=== PATIENT | male | born 1990 | race Hispanic/Latino ===

== ENCOUNTER 2019-12-12 09:50 | Emergency (ER) | payer SELFPAY ==
[2019-12-12 10:06] LABS: Absolute Lymphocytes (CBC) 1.3 K/uL (0.7-4.9); Basophils % 0.4 % (0-1.3); Hematocrit 42.3 % (39.6-49.0); Lymphocytes % 18.5 % (15.3-44.8); MPV 7.5 fL (7.6-11.3); RBC Red Blood Cell Count 5.05 M/uL (4.33-5.43)
[2019-12-12 10:26] LABS: ALT/SGPT 74 U/L (12-78); AST/SGOT 43 U/L (15-37); Albumin 3.9 g/dL (3.4-5.0); Alkaline Phosphatase 75 U/L (45-117); BUN Blood Urea Nitrogen 9 mg/dL (7-18); Bicarbonate 27 mmol/L (21-32); Bilirubin Direct 0.1 mg/dL (0-0.2); Bilirubin Total 0.5 mg/dL (0.2-1.0); Glucose Level 164 mg/dL (74-106); NT PRO-BNP 155 pg/mL (<125); Potassium 3.5 mmol/L (3.5-5.1); Protein, Total 8.3 g/dL (6.4-8.2); Sodium Level 140 mmol/L (136-145); Troponin (Emerg Dept Use Only) < 0.02 ng/mL (0.0-0.045)
--- NOTE | 2019-12-12 11:08 | RAD REPORT ---
EXAM DESCRIPTION: CT - Angio Aorta For Dissection - 12/12/2019 10:44 am CLINICAL HISTORY: . Chest and abd pain COMPARISON: 2016 TECHNIQUE: Computed tomography angiography of the chest, abdomen pelvis were obtained. 100 cc Isovue 370 was administered intravenously. Coronal and sagittal reconstruction were performed. MIP 3D reconstruction was performed All CT scans are performed using dose optimization technique as appropriate and may include automated exposure control or mA/KV adjustment according to patient size. FINDINGS: An aortic dissection is not seen. An aortic aneurysm is not displayed. The celiac, SMA and RAY are patent . A lung consolidation is not present. A pericardial effusion is not seen. A pleural effusion is not n oted. Multiple gallstones with borderline gallbladder distention. The gallbladder wall does not appear thic kened. Fatty liver Spleen, pancreas adrenals kidneys demonstrate no significant abnormality. The appendix is normal. There no evidence diverticulitis. No ascites is noted. IMPRESSION: Negative for an aortic dissection. Cholelithiasis with border line gallbladder distention
--- NOTE | 2019-12-12 11:23 | RAD REPORT ---
EXAM DESCRIPTION: Bharathi Single View12/12/2019 11:13 am CLINICAL HISTORY: Chest pain COMPARISON: 2016 FINDINGS: The lungs appear clear of acute infiltrate. The heart is normal size IMPRESSION: No acute abnormalities displayed
--- NOTE | 2019-12-12 11:26 | ER ---
Nurse's Notes [facility] Name: Adan Pfeiffer Age: 28 yrs Sex: Male : 1990 Arrival Date: 12/12/2019 Time: 09:56 Bed 2 Private MD: Diagnosis: Chest pain, unspecified;Hypertension Presentation: 12/11 09:50 Chief complaint: Patient states: chest pain that began while working outside, pt noted aa5 to be sweaty upon arrival to ER. EMS reports initial BP was 200/100 and decreased to 160/80 after Nitro x 2 and Metoprolol 5mg IV, pt also given ASA 324mg PO by EMS. Pt reports pain has decreased and reports feeling better upon arrival to ER. Pt reports he was just diagnosed with hypertension on Thursday and has not started antihypertensive yet. 09:50 Coronavirus screen: Client denies travel out of the [place] in the last 14 days. At this aa5 time, the client does not indicate any symptoms associated with coronavirus-19. Ebola Screen: Patient negative for fever greater than or equal to 101.5 degrees Fahrenheit, and additional compatible Ebola Virus Disease symptoms. Initial Sepsis Screen: Does the patient meet any 2 criteria? No. Patient's initial sepsis screen is negative. Does the patient have a suspected source of infection? No. Patient's initial sepsis screen is negative. Risk Assessment: Do you want to hurt yourself or someone else? Patient reports no desire to harm self or others. Onset of symptoms was December 12, 2019. 09:50 Method Of Arrival: EMS: [facility] aa5 09:50 Acuity: ANABEL 3 aa5 Historical: - Allergies: 10:05 No Known Allergies; ca1 - Home Meds: 10:05 None [Active]; ca1 - PMHx: 10:05 None; ca1 - PSHx: 10:05 None; ca1 - Immunization history:: Adult Immunizations up to date. - Family history:: not pertinent. - Social history:: Smoking status: Patient denies any tobacco usage or history of. - Hospitalizations: : No recent hospitalization is reported. Screenin:05 Abuse screen: Denies threats or abuse. Denies injuries from another. Nutritional ca1 screening: No deficits noted. Tuberculosis screening: No symptoms or risk factors identified. Fall Risk IV access (20 points). Assessment: 10:02 General: Appears in no apparent distress. comfortable, Behavior is calm, cooperative, ca1 appropriate for age. Pain: Complains of pain in mid-sternal area Pain does not radiate. Pain currently is 8 out of 10 on a pain scale. Quality of pain is described as heavy, pressure, Pain began 2 hours ago. Is intermittent. Neuro: Level of Consciousness is awake, alert, obeys commands, Oriented to person, place, time, situation. Neuro: Reports dizziness, with chest pain. Cardiovascular: Heart tones S1 S2 present Capillary refill < 3 seconds Patient's skin is warm and dry. Rhythm is sinus rhythm. Respiratory: Airway is patent Respiratory effort is even, unlabored, Respiratory pattern is regular, symmetrical, Breath sounds are clear bilaterally. GI: Abdomen is round non-distended, Bowel sounds present X 4 quads. Abd is soft and non tender X 4 quads. : No deficits noted. No signs and/or symptoms were reported regarding the genitourinary system. EENT: No deficits noted. No signs and/or symptoms were reported regarding the EENT system. Derm: Skin is intact, is healthy with good turgor, Skin is pink, warm \T\ dry. Musculoskeletal: Circulation, motion, and sensation intact. Capillary refill < 3 seconds. 10:09 Reassessment: [phone], Noemí, . ca1 10:53 Reassessment: Patient appears in no apparent distress at this time. Patient and/or ca1 family updated on plan of care and expected duration. Pain level reassessed. Patient is alert, oriented x 3, equal unlabored respirations, skin warm/dry/pink. 11:21 Reassessment: Dr. Kim at bedside. ca1 11:30 Reassessment: Patient appears in no apparent distress at this time. Patient is alert, ca1 oriented x 3, equal unlabored respirations, skin warm/dry/pink. Patient states feeling better. Patient states symptoms have improved. Vital Signs: 09:50 BP 152 / 96; Pulse 86; Resp 16 S; Temp 99.3(O); Pulse Ox 98% on R/A; Weight 122.47 kg aa5 (R); Height 6 ft. 1 in. (185.42 cm) (R); Pain 8/10; 10:53 BP 133 / 97; Pulse 77; Resp 20; Pulse Ox 98% on R/A; ca1 11:30 BP 137 / 87; Pulse 72; Resp 19 S; Pulse Ox 99% on R/A; Pain 4/10; ca1 09:50 Body Mass Index 35.62 (122.47 kg, 185.42 cm) 5 ED Course: 09:50 Patient arrived in ED. aa5 09:50 Arm band placed on Patient placed in an exam room, on a stretcher. aa5 09:56 Kurt Kim MD is Attending Physician. rn 10:00 Triage completed. aa5 10:02 Lynnette Berrios, RN is Primary Nurse. ca1 10:05 Patient has correct armband on for positive identification. Placed in gown. Bed in low ca1 position. Call light in reach. Side rails up X2. child monitor on. Pulse ox on. NIBP on. Warm blanket given. 10:05 No provider procedures requiring assistance completed. Maintain EMS IV. Dressing ca1 intact. Good blood return noted. Site clean \T\ dry. Gauge \T\ site: 18G RAC. Patient maintains SpO2 saturation greater than 95% on room air. 10:43 CT Aorta for Dissection In Process Unspecified. EDMS 11:14 XRAY Chest (1 view) In Process Unspecified. EDMS 11:39 IV discontinued, intact, bleeding controlled, No redness/swelling at site. Pressure ca1 dressing applied. Administered Medications: No medications were administered Outcome: 11:25 Discharge ordered by . rn 11:39 Discharged to home ambulatory. ca1 11:39 Condition: stable 11:39 Discharge instructions given to patient, Instructed on discharge instructions, follow up and referral plans. Demonstrated understanding of instructions, follow-up care. 11:40 Patient left the ED. ca1 Signatures: Dispatcher [employer] EDMS Kurt Kim MD MD rn Calderon, Audri, RN RN aa Lynnette Berrios RN RN ca1 Corrections: (The following items were deleted from the chart) 09:57 09:56 Patient arrived in ED. gilberto birch
--- NOTE | 2019-12-12 11:26 | EDPHYS ---
Physician Documentation [facility] Name: Adan Pfeiffer Age: 28 yrs Sex: Male : 1990 Arrival Date: 12/12/2019 Time: 09:56 Bed 2 Private MD: ED Physician Kurt Kim HPI: 12/11 09:57 This 28 yrs old Male presents to ER via Unassigned with complaints of Chest rn Pain. 09:57 The patient or guardian reports chest pain that is located primarily in the substernal rn area. The pain does not radiate. Associated signs and symptoms: Pertinent positives: None. Pertinent negatives: abdominal pain, cough, diaphoresis, dizziness, headache, lightheadedness, palpitations, shortness of breath, syncope, vomiting. The chest pain is described as a heaviness, squeezing. Duration: The patient or guardian reports a single episode. Modifying factors: The symptoms are alleviated by nothing. the symptoms are aggravated by nothing. Severity of pain: At its worst the pain was moderate in the emergency department the pain has improved. The patient has not experienced similar symptoms in the past. Reports just found out recently has high blood pressure, prescribed medication, did not fill, now having chest pain, substernal, non-radiating, while working. No trauma/fever/cough/sob. No abd pain. Feels better now, improved after 5mg metoprolol IV by EMS.. Historical: - Allergies: 10:05 No Known Allergies; ca1 - Home Meds: 10:05 None [Active]; ca1 - PMHx: 10:05 None; ca1 - PSHx: 10:05 None; ca1 - Immunization history:: Adult Immunizations up to date. - Family history:: not pertinent. - Social history:: Smoking status: Patient denies any tobacco usage or history of. - Hospitalizations: : No recent hospitalization is reported. ROS: 09:57 Constitutional: Negative for fever, chills, and weight loss, Eyes: Negative for injury, rn pain, redness, and discharge, Neck: Negative for injury, pain, and swelling, Cardiovascular: Negative for palpitations, and edema, Respiratory: Negative for shortness of breath, cough, wheezing, and pleuritic chest pain, Abdomen/GI: Negative for abdominal pain, nausea, vomiting, diarrhea, and constipation, Back: Negative for injury and pain, MS/Extremity: Negative for injury and deformity, Skin: Negative for injury, rash, and discoloration, Neuro: Negative for headache, weakness, numbness, tingling, and seizure. Exam: 09:57 Constitutional: This is a well developed, well nourished patient who is awake, alert, rn and in no acute distress. Head/Face: Normocephalic, atraumatic. Eyes: Pupils equal round and reactive to light, extra-ocular motions intact. Lids and lashes normal. Conjunctiva and sclera are non-icteric and not injected. Cornea within normal limits. Periorbital areas with no swelling, redness, or edema. Cardiovascular: Regular rate and rhythm. No pulse deficits. Respiratory: No increased work of breathing, no retractions or nasal flaring. Abdomen/GI: Soft, non-tender MS/ Extremity: Pulses equal, no cyanosis. Neurovascular intact. Full, normal range of motion. Equal circumference. Neuro: Awake and alert, GCS 15 Vital Signs: 09:50 BP 152 / 96; Pulse 86; Resp 16 S; Temp 99.3(O); Pulse Ox 98% on R/A; Weight 122.47 kg aa5 (R); Height 6 ft. 1 in. (185.42 cm) (R); Pain 8/10; 10:53 BP 133 / 97; Pulse 77; Resp 20; Pulse Ox 98% on R/A; ca1 11:30 BP 137 / 87; Pulse 72; Resp 19 S; Pulse Ox 99% on R/A; Pain 4/10; ca1 09:50 Body Mass Index 35.62 (122.47 kg, 185.42 cm) aa5 MDM: 09:56 Patient medically screened. rn 11:23 Differential diagnosis: acute myocardial infarction, acute pericarditis, anxiety, rn cholecystitis, Cholelithiasis costochondritis, esophagitis, gastritis, gastroesophageal reflux disease (GERD), pleurisy, pneumothorax, thoracic aortic disection. Data reviewed: vital signs, nurses notes, lab test result(s), EKG, radiologic studies, CT scan, plain films, and as a result, I will discharge patient. Counseling: I had a detailed discussion with the patient and/or guardian regarding: the historical points, exam findings, and any diagnostic results supporting the discharge/admit diagnosis, lab results, radiology results, the need for outpatient follow up, to return to the emergency department if symptoms worsen or persist or if there are any questions or concerns that arise at home. Response to treatment: the patient's symptoms have resolved after treatment, the patient's condition has returned to base line, the patient is now symptom free, and as a result, I will discharge patient. Special discussion: Based on the patient's history, exam, and Dx evaluation, there is no indication for emergent intervention or inpatient Tx. It is understood by the patient/guardian that if the Sx's persist or worsen they need to return immediately for re-evaluation. I discussed with the patient/guardian in detail that at this point there is no indication for admission to the hospital. It is understood, however, that if the symptoms persist or worsen the patient needs to return immediately for re-evaluation. ED course: Neg w/u here, including aortic scan, + known gallstones without thickening or phil-cholecystic fluid, no abd tenderness. Will dc home with instruction to start taking his BP meds as prescribed. Return precautions given and understood. . 11:26 Counseling: I had a detailed discussion with the patient and/or guardian regarding: the rn presence of at least one elevated blood pressure reading (>120/80) during this emergency department visit. Special discussion: I have referred the patient to see his PCP for further evaluation of high blood pressure. 12/11 09:57 Order name: Basic Metabolic Panel; Complete Time: 10:12/11 09:57 Order name: CBC with Diff; Complete Time: :12/11 09:57 Order name: LFT's; Complete Time: :12/11 09:57 Order name: NT PRO-BNP; Complete Time: 10:12/11 09:57 Order name: Troponin (emerg Dept Use Only); Complete Time: 10:12/11 09:57 Order name: XRAY Chest (1 view); Complete Time: 11:12/11 09:57 Order name: EKG; Complete Time: 09:12/11 09:57 Order name: Cardiac monitoring; Complete Time: 10:12/11 09:57 Order name: EKG - Nurse/Tech; Complete Time: 10:12/11 09:57 Order name: IV Saline Lock; Complete Time: 10:06 rn 12/11 09:57 Order name: Labs collected and sent; Complete Time: 10: rn 12/11 09:57 Order name: O2 Per Protocol; Complete Time: 10: rn 12/11 09:57 Order name: O2 Sat Monitoring; Complete Time: 10: rn 12/11 09:57 Order name: CT Aorta for Dissection; Complete Time: 11:20 rn Administered Medications: No medications were administered Disposition: 12/12/19 11:25 Discharged to Home. Impression: Chest pain, unspecified, Hypertension. - Condition is Stable. - Discharge Instructions: Nonspecific Chest Pain, Hypertension, Cholelithiasis. - Medication Reconciliation Form, Thank You Letter, Antibiotic Education, Prescription Opioid Use, Work release form form. - Follow up: Private Physician; When: As needed; Reason: Recheck today's complaints, Re-evaluation by your physician. - Problem is new. - Symptoms have improved. Signatures: Dispatcher [employer] EDMS Kurt Kim MD MD rn Acob, KAYLEEN Church RN ca1 Corrections: (The following items were deleted from the chart) 11:40 11:25 12/12/2019 11:25 Discharged to Home. Impression: Chest pain, unspecified; ca1 Hypertension. Condition is Stable. Forms are Medication Reconciliation Form, Thank You Letter, Antibiotic Education, Prescription Opioid Use. Follow up: Private Physician; When: As needed; Reason: Recheck today's complaints, Re-evaluation by your physician. Problem is new. Symptoms have improved. rn
[2019-12-15 06:34] VITALS: TEMP 99.3
[2019-12-15 06:48] VITALS: BP 137/87; O2SAT 99
== END 2019-12-12 11:40 | disposition home or self-care (01) ==
LOC: ER 09:50
DX: I10 Essential (primary) hypertension (principal)
CPT/HCPCS: 36415; 71045; 71275; 74175; 80048; 80076; 83880; 84484; 85025; 93005; 99284; Q9967

== ENCOUNTER 2021-06-18 19:18 | Inpatient (IN) | payer SELFPAY ==
[2021-06-18 20:18] LABS: Absolute Lymphocytes (CBC) 1.6 K/uL (0.7-4.9); Hematocrit 39.4 % (39.6-49.0); Lymphocytes % 10.4 % (15.3-44.8); MPV 7.1 fL (7.6-11.3); RBC Red Blood Cell Count 4.81 M/uL (4.33-5.43)
[2021-06-18] MEDS ORDERED: FAMOTIDINE 20 MG/2 ML VIAL IV ONE (20:33)
[2021-06-18] MEDS ORDERED: NA CHLORIDE 0.9% 1,000 ML ONE (20:33)
[2021-06-18] MEDS ORDERED: ONDANSETRON 4 MG/2 ML VIAL ONE (20:33)
[2021-06-18 20:36] LABS: ALT/SGPT 44 U/L (12-78); AST/SGOT 18 U/L (15-37); Albumin 3.3 g/dL (3.4-5.0); Alkaline Phosphatase 105 U/L (45-117); BUN Blood Urea Nitrogen 11 mg/dL (7-18); Bicarbonate 29 mmol/L (21-32); Bilirubin Direct 0.1 mg/dL (0-0.2); Bilirubin Total 0.3 mg/dL (0.2-1.0); Glucose Level 110 mg/dL (74-106); Lipase 151 U/L (73-393); Potassium 3.7 mmol/L (3.5-5.1); Protein, Total 8.7 g/dL (6.4-8.2); Sodium Level 138 mmol/L (136-145)
--- NOTE | 2021-06-18 21:05 | RAD REPORT ---
EXAM DESCRIPTION: CT - Abdomen Pelvis W Contrast - 06/18/2021 8:51 pm CLINICAL HISTORY: ABD PAIN COMPARISON: Abdomen Pelvis W Contrast dated 07/11/2016 TECHNIQUE: Biphasic, helical CT imaging of the abdomen and pelvis was performed following 100 ml non -ionic IV contrast. No oral contrast administered. All CT scans are performed using dose optimization technique as appropriate and may include automated exposure control or mA/KV adjustment according to patient size. FINDINGS: No suspicious findings in the lung bases. The liver, spleen, and pancreas show no suspicious findings. Gallbladder is grossly abnormal. Gallbla dder is distended with wall thickening and edema. Pericholecystic edema and stranding are present. Th ere are multiple gallstones present. Biliary tree is not dilated. Symmetric renal function is seen with no hydronephrosis or suspicious renal mass. No pyelonephritis o r acute parenchymal process. No bladder abnormalities. No adrenal abnormalities. No dilated bowel loops or bowel wall thickening. Sigmoid diverticulosis present without diverticuliti s. No appendicitis. No free air, free fluid or pneumatosis. Trace free fluid in the dependent portion the pelvis not clinically significant. No hernia, mass or bulky lymphadenopathy. No suspicious bony findings. IMPRESSION: Acute cholecystitis findings are evident with gallbladder wall thickening/edema, multi s tone cholelithiasis and pericholecystic edematous stranding. No biliary tree dilatation.
--- NOTE | 2021-06-18 21:29 | RAD REPORT ---
EXAM DESCRIPTION: US - Abdomen Exam Limited - 06/18/2021 9:18 pm CLINICAL HISTORY: Right upper quadrant pain;Abd pain COMPARISON: Abdomen Pelvis W Contrast dated 06/18/2021 FINDINGS: Multiple gallstones are present. A small amount of sludge is also seen. Gallbladder wall i s thickened with a small amount of fluid or edema in the pericholecystic fatty tissues of the gallbla dder fossa. No duct stone or biliary tree dilatation. IMPRESSION: Gallbladder ultrasound findings are consistent with acute cholecystitis. Similar finding s noted in the CT study of the same date. No duct stone or biliary tree dilatation.
--- NOTE | 2021-06-18 22:08 | ER ---
Nurse's Notes [facility] Name: Adan Pfeiffer Age: 30 yrs Sex: Male : 1990 Arrival Date: 06/18/2021 Time: 19:20 Bed 18 Private MD: Diagnosis: Upper abdominal pain, unspecified;Acute cholecystitis Presentation: 06/18 19:35 Chief complaint: Patient states: abdominal pain x 2 weeks. last week the pain al4 got worse and has continued. Pain is mostly in RUQ. Coronavirus screen: Vaccine status: Patient reports receiving the 2nd dose of the covid vaccine. moderna. Ebola Screen: No symptoms or risks identified at this time. Initial Sepsis Screen: Does the patient meet any 2 criteria? HR > 90 bpm. No. Patient's initial sepsis screen is negative. Does the patient have a suspected source of infection? No. Patient's initial sepsis screen is negative. Risk Assessment: Do you want to hurt yourself or someone else? Patient reports no desire to harm self or others. Onset of symptoms was June 13, 2021. 19:35 Method Of Arrival: Ambulatory al4 19:35 Acuity: ANABEL 3 al4 Triage Assessment: 19:40 General: Appears in no apparent distress. uncomfortable, Behavior is calm, cooperative. al4 Pain: Complains of pain in right upper quadrant Pain currently is 9 out of 10 on a pain scale. Neuro: Level of Consciousness is awake, alert, obeys commands, Oriented to person, place, time, situation. Cardiovascular: Capillary refill < 3 seconds Patient's skin is warm and dry. Respiratory: Airway is patent Respiratory effort is unlabored, Respiratory pattern is regular. GI: Patient currently denies nausea, vomiting. Musculoskeletal: Range of motion: intact in all extremities. Historical: - Allergies: 19:40 No Known Allergies; al4 - Immunization history:: Adult Immunizations up to date, Client reports receiving the 2nd dose of the Covid vaccine, Pneumococcal vaccine is up to date, Flu vaccine is up to date. - Social history:: Smoking status: Patient denies any tobacco usage or history of. Screenin:06 Abuse screen: Denies threats or abuse. Denies injuries from another. Nutritional ab2 screening: No deficits noted. Tuberculosis screening: No symptoms or risk factors identified. Fall Risk None identified. Assessment: 20:10 General: Appears in no apparent distress. comfortable, well groomed, well developed, tk1 well nourished, Behavior is calm, cooperative, appropriate for age. Pain: Complains of pain in right upper quadrant Pain does not radiate. Pain currently is 8 out of 10 on a pain scale. Quality of pain is described as sharp, Pain began gradually, 1 day ago. Neuro: Level of Consciousness is awake, alert, obeys commands, Oriented to person, place, time, situation, Appropriate for age Sex Crimes Detective are equal bilaterally Moves all extremities. Gait is steady, Speech is normal. Cardiovascular: Capillary refill < 3 seconds is brisk in bilateral fingers. Respiratory: Airway is patent Respiratory effort is even, unlabored, Respiratory pattern is regular, symmetrical. GI: Abdomen is round non-distended, Bowel sounds present X 4 quads. Abd is soft X 4 quads Reports upper abdominal pain. : No deficits noted. No signs and/or symptoms were reported regarding the genitourinary system. EENT: No deficits noted. No signs and/or symptoms were reported regarding the EENT system. Derm: No deficits noted. No signs and/or symptoms reported regarding the dermatologic system. Musculoskeletal: No deficits noted. No signs and/or symptoms reported regarding the musculoskeletal system. 20:46 Reassessment: Patient to radiology via WC with tech. tk1 21:11 Reassessment: No changes from previously documented assessment. Patient and/or family tk1 updated on plan of care and expected duration. Pain level reassessed. Patient is alert, oriented x 3, equal unlabored respirations, skin warm/dry/pink. Patient returned to room. Approached desk to request to use the phone. Assisted with attempting to call . Pain: Complains of pain in abdomen and right upper quadrant Pain does not radiate. Pain currently is 8 out of 10 on a pain scale. 21:53 Reassessment: Patient up to restroom to void. Steady gait. Tolerated well. tk1 22:16 Reassessment: Dr. Sandoval in to discuss findings with patient. Patient unwilling at tk1 present to stay in hospital. Dr. Sandoval returned to speak with patient. Patient requested to go outside to discuss with . Dr. Sandoval okayed patient to go to parking lot with IV in place to discuss with . 22:20 Reassessment: Patient returned to room with . Dr. Sandoval updated. tk1 06/19 00:30 Reassessment: No changes from previously documented assessment. Patient and/or family tk1 updated on plan of care and expected duration. Pain level reassessed. Patient is alert, oriented x 3, equal unlabored respirations, skin warm/dry/pink. Patient consented to stay for surgical consult. Vital Signs: 06/18 19:35 BP 151 / 98; Pulse 123; Resp 16 S; Temp 99.6; Pulse Ox 98% ; Height 6 ft. 1 in. (185.42 al4 cm) (R); Pain 9/10; 20:10 BP 148 / 91 LA Supine (auto/reg); Pulse 115 MON; Resp 18 S; Pulse Ox 97% on R/A; Pain tk1 8/10; 21:17 BP 113 / 70 RA Supine (auto/reg); Pulse 102; Resp 18 S; Pulse Ox 99% ; Pain 3/10; tk1 22:00 BP 119 / 60 LA Supine (auto/); Pulse 102 MON; Resp 18 S; Pulse Ox 98% on R/A; Pain 8/10;tk1 23:00 BP 119 / 63 LA Supine (auto/reg); Pulse 116 MON; Resp 18 S; Pulse Ox 97% on R/A; tk1 06/19 00:00 BP 122 / 64 LA Supine (auto/); Pulse 111 MON; Resp 20 S; Temp 99.7(O); Pulse Ox 97% on tk1 R/A; Pain 3/10; ED Course: 06/18 19:20 Patient arrived in ED. kc5 19:36 Dixon Sandoval MD is Attending Physician. kdr 19:40 Triage completed. al4 19:40 Arm band placed on right wrist. al4 20:05 Inserted saline lock: 20 gauge in right antecubital area, using aseptic technique. ab2 Blood collected. 20:06 Basic Metabolic Panel Sent. ab2 20:06 CBC with Diff Sent. ab2 20:06 Hepatic Function Sent. ab2 20:06 Lipase Sent. ab2 20:06 No provider procedures requiring assistance completed. ab2 20:10 Patient has correct armband on for positive identification. Bed in low position. Call tk1 light in reach. 20:10 IV is patent, is intact, with fluids infusing freely, with good blood return. tk1 20:27 Elsi Ricardo is Primary Nurse. tk1 20:51 CT Abd/Pelvis - IV Contrast Only In Process Unspecified. EDMS 21:18 US Abdomen Limited In Process Unspecified. EDMS 22:04 Checo Byrne MD is Referral Physician. kdr 22:30 Checo Byrne MD is Hospitalizing Provider. kdr 23:43 COVID-19/FLU A+B (Document "Date of Onset" if Symptomatic) Sent. ss7 06/19 00:00 IV is patent, is intact, with fluids infusing freely, without good blood return. tk1 00:44 Patient admitted, IV remains in place. tk1 Administered Medications: 06/18 20:30 Drug: Pepcid (famotidine) 20 mg Route: IVP; Rate: 10 mg/min; Infused Over: 2 mins; tk1 Site: right antecubital; 22:22 Follow up: Response: No change in condition tk1 20:32 Drug: Zofran (Ondansetron) 4 mg Route: IVP; Rate: 2 mg/min; Infused Over: 2 mins; Site: tk1 right antecubital; 22:21 Follow up: Response: Nausea is decreased tk1 20:32 Drug: NS 0.9% 1000 ml Route: IV; Rate: 1 bolus; Infused Over: 1 hrs; Site: right tk1 antecubital; Delivery: Primary tubing; 22:22 Follow up: IV Status: Completed infusion; IV Intake: 1000ml tk1 22:47 Drug: Cipro (ciprofloxacin) 500 mg Route: PO; tk1 06/19 00:36 Follow up: Response: No adverse reaction tk1 06/18 22:47 Drug: Flagyl (metroNIDAZOLE) 500 mg Route: PO; tk1 06/19 00:35 Follow up: Response: No adverse reaction tk1 Intake: 06/18 22:22 IV: 1000ml; Total: 1000ml. tk1 Outcome: 22:30 Decision to Hospitalize by Provider. kdr 06/19 00:44 Admitted to Med/surg accompanied by tech, via wheelchair, room 221, with chart, Report tk1 called to KAYLEEN Callahan 01:29 Patient left the ED. tk1 Signatures: Dispatcher [employer] EDDC Dixon Sandoval MD MD kdr Danielle Orr kc5 Sree Beckham al4 Elsi Ricardo tk1 Sree Brothers ab2 Rayna Rizvi RN RN ss7 Corrections: (The following items were deleted from the chart) 00:32 06/18 21:17 Temp 99.4F Oral; tk1 tk1
--- NOTE | 2021-06-18 22:08 | EDPHYS ---
Physician Documentation [facility] Name: Adan Pfeiffer Age: 30 yrs Sex: Male : 1990 Arrival Date: 06/18/2021 Time: 19:20 Bed 18 Private MD: ED Physician Dixon Sandoval HPI: 06/18 20:21 This 30 yrs old Male presents to ER via Ambulatory with complaints of kdr Abdominal Pain. 20:21 The patient presents with abdominal pain in the right upper quadrant. Onset: The kdr symptoms/episode began/occurred gradually, 2 week(s) ago. The symptoms radiate to the right flank. Associated signs and symptoms: Pertinent positives: nausea, Pertinent negatives: chest pain, constipation, diarrhea, dysuria, fever, headache, hematuria, palpitations, shortness of breath, vomiting, vomiting blood. The symptoms are described as achy, crampy, intermittent, vague, waxing/waning. Modifying factors: The symptoms are alleviated by nothing, the symptoms are aggravated by movement, nothing. Severity of pain: At its worst the pain was mild just prior to arrival, in the emergency department the pain. The patient has not experienced similar symptoms in the past. The patient has not recently seen a physician. Historical: - Allergies: 19:40 No Known Allergies; al4 - Immunization history:: Adult Immunizations up to date, Client reports receiving the 2nd dose of the Covid vaccine, Pneumococcal vaccine is up to date, Flu vaccine is up to date. - Social history:: Smoking status: Patient denies any tobacco usage or history of. ROS: 20:21 Constitutional: Negative for fever, chills, and weight loss, Eyes: Negative for injury, kdr pain, redness, and discharge, Neck: Negative for injury, pain, and swelling, Cardiovascular: Negative for chest pain, palpitations, and edema, Respiratory: Negative for shortness of breath, cough, wheezing, and pleuritic chest pain, Back: Negative for injury and pain, : Negative for injury, bleeding, discharge, and swelling, MS/Extremity: Negative for injury and deformity, Skin: Negative for injury, rash, and discoloration, Neuro: Negative for headache, weakness, numbness, tingling, and seizure activity. Psych: Negative for depression, anxiety, suicide ideation, homicidal ideation, and hallucinations, Allergy/Immunology: Negative for hives, rash, and allergies, Endocrine: Negative for neck swelling, polydipsia, polyuria, polyphagia, and marked weight changes, Hematologic/Lymphatic: Negative for swollen nodes, abnormal bleeding, and unusual bruising. 20:21 Abdomen/GI: Positive for abdominal pain, nausea, Negative for diarrhea, constipation, abdominal cramps, abdominal distension, anorexia, dysphagia, hematemesis, black/tarry stool, rectal pain, rectal bleeding, bowel incontinence. Exam: 20:21 Constitutional: This is a well developed, well nourished patient who is awake, alert, kdr and in no acute distress. Head/Face: Normocephalic, atraumatic. Eyes: Pupils equal round and reactive to light, extra-ocular motions intact. Lids and lashes normal. Conjunctiva and sclera are non-icteric and not injected. Cornea within normal limits. Periorbital areas with no swelling, redness, or edema. Neck: Trachea midline, no thyromegaly or masses palpated, and no cervical lymphadenopathy. Supple, full range of motion without nuchal rigidity, or vertebral point tenderness. No Meningismus. Chest/axilla: Normal chest wall appearance and motion. Nontender with no deformity. No lesions are appreciated. Cardiovascular: Regular rate and rhythm with a normal S1 and S2. No gallops, murmurs, or rubs. Normal PMI, no JVD. No pulse deficits. Respiratory: Lungs have equal breath sounds bilaterally, clear to auscultation and percussion. No rales, rhonchi or wheezes noted. No increased work of breathing, no retractions or nasal flaring. Back: No spinal tenderness. No costovertebral tenderness. Full range of motion. Skin: Warm, dry with normal turgor. Normal color with no rashes, no lesions, and no evidence of cellulitis. MS/ Extremity: Pulses equal, no cyanosis. Neurovascular intact. Full, normal range of motion. Neuro: Awake and alert, GCS 15, oriented to person, place, time, and situation. Cranial nerves II-XII grossly intact. Motor strength 5/5 in all extremities. Sensory grossly intact. Cerebellar exam normal. Normal gait. Psych: Awake, alert, with orientation to person, place and time. Behavior, mood, and affect are within normal limits. 20:21 Abdomen/GI: Inspection: abdomen appears normal, obese Bowel sounds: active, diminished, in all quadrants, Palpation: soft, mild abdominal tenderness, in the anterior aspect of right lateral abdomen, posterior aspect of right lateral abdomen, right upper quadrant and right lower quadrant. Vital Signs: 19:35 BP 151 / 98; Pulse 123; Resp 16 S; Temp 99.6; Pulse Ox 98% ; Height 6 ft. 1 in. (185.42 al4 cm) (R); Pain 9/10; 20:10 BP 148 / 91 LA Supine (auto/reg); Pulse 115 MON; Resp 18 S; Pulse Ox 97% on R/A; Pain tk1 8/10; 21:17 BP 113 / 70 RA Supine (auto/reg); Pulse 102; Resp 18 S; Pulse Ox 99% ; Pain 3/10; tk1 22:00 BP 119 / 60 LA Supine (auto/); Pulse 102 MON; Resp 18 S; Pulse Ox 98% on R/A; Pain 8/10;tk1 23:00 BP 119 / 63 LA Supine (auto/reg); Pulse 116 MON; Resp 18 S; Pulse Ox 97% on R/A; tk1 06/19 00:00 BP 122 / 64 LA Supine (auto/); Pulse 111 MON; Resp 20 S; Temp 99.7(O); Pulse Ox 97% on tk1 R/A; Pain 3/10; MDM: 03 20:21 Data reviewed: vital signs, nurses notes, lab test result(s), radiologic studies. kdr Counseling: I had a detailed discussion with the patient and/or guardian regarding: the historical points, exam findings, and any diagnostic results supporting the discharge/admit diagnosis, lab results, radiology results, the need for outpatient follow up. 22:06 Patient medically screened. kdr 23:16 ED course: Patient was stable in the ED. His symptoms improved somewhat with the kdr interventions given. Patient is reluctant to stay and have the cholecystitis addressed by surgery due to his lack of insurance. I discussed with Dr. Byrne who indicated he would work with the patient in addressing these concerns.. 06/18 19:55 Order name: Basic Metabolic Panel; Complete Time: 20:42 kdr 06/18 19:55 Order name: CBC with Diff; Complete Time: 20:42 kdr 06/18 19:55 Order name: Hepatic Function; Complete Time: 20:42 kdr 06/18 19:55 Order name: Lipase; Complete Time: 20:42 kdr 06/18 23:30 Order name: COVID-19/FLU A+B (Document "Date of Onset" if Symptomatic) ds4 06/19 00:31 Order name: COVID-19/FLU A+B EDMS 06/18 20:17 Order name: CT Abd/Pelvis - IV Contrast Only; Complete Time: 21:13 kdr 06/18 20:20 Order name: US Abdomen Limited; Complete Time: 21:46 kdr 06/18 22:37 Order name: NPO; Complete Time: 22:54 EDMS 06/18 19:55 Order name: IV Saline Lock; Complete Time: 20:06 kdr 06/18 19:55 Order name: Labs collected and sent; Complete Time: 20:06 kdr Administered Medications: 20:30 Drug: Pepcid (famotidine) 20 mg Route: IVP; Rate: 10 mg/min; Infused Over: 2 mins; tk1 Site: right antecubital; 22:22 Follow up: Response: No change in condition tk1 20:32 Drug: Zofran (Ondansetron) 4 mg Route: IVP; Rate: 2 mg/min; Infused Over: 2 mins; Site: tk1 right antecubital; 22:21 Follow up: Response: Nausea is decreased tk1 20:32 Drug: NS 0.9% 1000 ml Route: IV; Rate: 1 bolus; Infused Over: 1 hrs; Site: right tk1 antecubital; Delivery: Primary tubing; 22:22 Follow up: IV Status: Completed infusion; IV Intake: 1000ml tk1 22:47 Drug: Cipro (ciprofloxacin) 500 mg Route: PO; tk1 06/19 00:36 Follow up: Response: No adverse reaction tk1 06/18 22:47 Drug: Flagyl (metroNIDAZOLE) 500 mg Route: PO; tk1 06/19 00:35 Follow up: Response: No adverse reaction tk1 Disposition Summary: 06/18/21 22:30 Hospitalization Ordered Hospitalization Status: Observation kdr Provider: Checo Byrne Location: Telemetry/MedSurg (observation)(06/18/21 22:30) kdr Condition: Fair(06/18/21 22:30) kdr Problem: an acute exacerbation(06/18/21 22:30) kdr Symptoms: have improved(06/18/21 22:30) kdr Bed/Room Type: Standard kdr Room Assignment: 221(06/19/21 00:37) cg Diagnosis - Upper abdominal pain, unspecified(06/18/21 22:30) kdr - Acute cholecystitis(06/18/21 22:30) kdr Forms: - Medication Reconciliation Form kdr - SBAR form kdr Signatures: Dispatcher [employer] EDMS Dixon Sandoval MD MD kdr Tabatha Edgar RN RN cg Sree Beckham Tammie tk1 Corrections: (The following items were deleted from the chart) 06/18 22:29 22:06 Home kdr kdr 22:29 22:06 an acute exacerbation kdr kdr 22:29 22:06 have improved kdr kdr 22:29 22:06 Fair kdr kdr 22:29 22:06 Upper abdominal pain, unspecified kdr kdr 22:29 22:06 Acute cholecystitis kdr kdr 06/19 00:37 06/18 22:30 kdr cg
[2021-06-18] MEDS ORDERED: ACETAMINOPHEN 500 MG TAB PO PRN (22:33)
[2021-06-18] MEDS ORDERED: ONDANSETRON 4 MG/2 ML VIAL IV PRN (22:33)
[2021-06-18] MEDS ORDERED: metroNIDAZOLE 500 MG TABLET ONE (22:51)
[2021-06-18] MEDS ORDERED: CIPROFLOXACIN HCL 500 MG TAB ONE (22:54)
[2021-06-19 00:30] LABS: SARS-COV-2 RT PCR NEGATIVE (NEGATIVE)
[2021-06-19] MEDS: METRONIDAZOLE 500mg IVPB 500 MG/100 ML BAG IV SCH ×3 (01:00→17:00)
[2021-06-19 01:17] VITALS: BMI 33.3
[2021-06-19] MEDS: D5 0.45 NS 1,000 ML IV SCH ×4 (01:51→22:25)
[2021-06-19 04:23] LABS: Absolute Lymphocytes (CBC) 1.9 K/uL (0.7-4.9); Hematocrit 36.1 % (39.6-49.0); MPV 6.8 fL (7.6-11.3); RBC Red Blood Cell Count 4.32 M/uL (4.33-5.43)
[2021-06-19 04:42] LABS: ALT/SGPT 43 U/L (12-78); AST/SGOT 14 U/L (15-37); Albumin 2.9 g/dL (3.4-5.0); Alkaline Phosphatase 88 U/L (45-117); BUN Blood Urea Nitrogen 9 mg/dL (7-18); Bicarbonate 30 mmol/L (21-32); Bilirubin Direct 0.1 mg/dL (0-0.2); Bilirubin Total 0.6 mg/dL (0.2-1.0); Glucose Level 127 mg/dL (74-106); Lipase 123 U/L (73-393); Potassium 4.1 mmol/L (3.5-5.1); Protein, Total 7.7 g/dL (6.4-8.2); Sodium Level 137 mmol/L (136-145)
[2021-06-19] MEDS: MORPHINE 4 MG/ML SYR IV PRN ×2 (07:55→21:28)
[2021-06-19] MEDS: CIPROFLOXACIN 400mg IV 400 MG/200 ML BAG IV SCH ×2 (08:00→21:29)
[2021-06-19] MEDS ORDERED: Ringers Lactate 1,000 ML IV ONE ×2 (12:09→15:44)
[2021-06-19] MEDS ORDERED: MIDAZOLAM HCL 2 MG/2 ML INJ ONE (12:36)
[2021-06-19] MEDS ORDERED: propofoL 200 MG/20 ML VIAL IV ONE (12:36)
[2021-06-19] MEDS ORDERED: ROCURONIUM 50 MG/5 ML VIAL IV ONE ×2 (12:37→14:34)
[2021-06-19] MEDS ORDERED: FENTANYL CITR 100 MCG/2 ML ONE ×4 (12:37→15:37)
[2021-06-19] MEDS ORDERED: LIDOCAINE 1% MPF 5 ML VIAL ONE (12:37)
[2021-06-19] MEDS ORDERED: SUCCINYLCHOLINE 20 MG/ML (10 ML) IV ONE (12:41)
--- NOTE | 2021-06-19 12:56 | P.HP ---
Date of Service: 06/19/21 PC: This 30-year-old male presented to emergency room with severe right upper quadrant abdominal pain radiating into his back for diagnosis and treatment. HPC: Patient states he had sudden onset of right upper quadrant abdominal pain, radiating into his back. Pain has been off and on for the last few weeks but this was his most severe episode. He could no longer stand it at home and came for assistance. PSHx: Negative PMHx: Negative Social Hx: No known allergies Sys R: No cough, wheeze, shortness of breath. No chest pain or palpitations. No urinary complaints O/E: Awake alert mildly uncomfortable at the moment HEENT: Nonicteric Chest: Air entry equal bilaterally Abd: Mild right upper quadrant tenderness [place]: Intact Data: Elevated white cell count, has documented cholecystitis with cholelithiasis Impression: Cholecystitis with cholelithiasis, biliary colic Plan: I will taken the operating room for laparoscopic possible open cholecystectomy with a cholangiogram. The risks of this procedure have been discussed. The possibility of bleeding, infection, injury to bile ducts blood vessels and intestines has been described. The possible need for an open and/or further surgeries and procedures was discussed. He understands and wants to proceed.
[2021-06-19] MEDS ORDERED: dexAMETHasone 10 MG/ML VIAL ONE (13:26)
[2021-06-19] MEDS ORDERED: GLYCOPYRROLATE 0.2 MG/ML SYR ONE (13:26)
[2021-06-19] MEDS ORDERED: KETOROLAC 30 MG/ML INJ ONE (13:26)
[2021-06-19] MEDS ORDERED: NEOSTIGMINE 1 MG/ML -5 ML ONE (14:32)
[2021-06-19] MEDS ORDERED: ONDANSETRON 4 MG/2 ML VIAL ONE (14:32)
[2021-06-19] MEDS ORDERED: LABETALOL 20 MG/4ML SYRINGE IV ONE (16:44)
--- NOTE | 2021-06-19 17:36 | P.OP ---
Preoperative diagnosis: Acute on chronic cholecystitis with cholelithiasis, biliary colic Postoperative diagnosis: The same Primary procedure: Laparoscopic cholecystectomy with a cholangiogram Secondary procedure: Intraoperative fluoroscopy with side ICG Estimated blood loss: Less than 50 cc Specimen: Gallbladder and contents Operative Technique: The patient brought the operating room and placed supine on the table. After the induction of general endotracheal anesthesia, the area of the abdomen was prepped with a DuraPrep solution, he was draped in usual aseptic manner. A subumbilical incision was made. This was brought down through the skin and subcutaneous tissue. The Visiport was used in the peritoneal cavity and created pneumoperitoneum to approximately 12 mmHg. Under direct vision a 5 mm trocar was placed in the upper midline, and 2 others on the right lateral side of the abdomen. At this point we are able to visualize the right upper quadrant. We could see a markedly distended gallbladder. There were acute and chronic adhesions to the fundus of the gallbladder. We could see the colon and the omentum nearby. Gentle dissection of this allowed us to remove these omental adhesions. It became clear the patient also had a thick peel extending around the fundus of the gallbladder down towards the body. There were marked amount of adhesions once again from the gallbladder to the omentum and the transverse colon. These were gently divided and taken down. We tried to aspirate the contents of the gallbladder so we could place a grasper on the fundus. When it was necessary for us to place an actual #2 nylon stitch into the fundus and this loop allowed us to apply traction to the gallbladder itself. Gentle dissection was now begun and we were able to come down and take open the peel and get down to the base of the gallbladder itself. This was a traced down around towards the Humphrey's pouch. At this point Humphrey's pouch took a marked dip posteriorly. We gently dissected back and forth through this thick hard peel taking away from the gallbladder itself. It finally became necessary to dissect the gallbladder in a retrograde manner. Prior to this we will attempt to do a cholangiogram how it was an unsatisfactory view. This was actually the area of soft tissue where the catheter popped into the contained the cystic artery. The area was clipped and divided and the pedicle well controlled. After we had taken the gallbladder down in a retrograde manner which was a quite a tedious and laborious process. We had good hemostasis. We could now demonstrate where the size of the cystic duct was. It was a quite a sizable structure but some was accounted for by peel. I wanted to ensure that we did not have a Mirizzi syndrome. Approximately 50 minutes prior to arriving at this point I dissection the patient was given the Indocin green. We did have some visualization of the gallbladder but not enough to be definitive in our anatomical markings. At this point an opening was made into what we identified as the cystic duct. This showed is a very tortuous cystic duct and came down into a common bile duct. There was good flow of contrast into the duodenum as well as demonstration of both the left and right hepatic ducts. The catheter was removed. Dissection was begun to expose the cystic duct. Because of the thickness and amount of peeling the area I elected to place a linear stapler across the cystic duct which was fired essentially sealing it with a double row of nayeli. At this point the gallbladder was now placed into an Endo Catch. It was brought out through the umbilical trocar site. Due to the size thickness and lack of elasticity to this tissue was necessary to open the fascia for a good 3 and half centimeters both North and South. We finally were able to get the gallbladder to the outside but we did lose some stones into the peritoneal cavity. At this point the abdomen was irrigated with a copious amount of a saline solution. We attempted to picker and sorter load and unload as many loose stones as we possibly could. The Kelvin- Ott drain was in Morison's pouch and brought out through our lateral 5 mm trocar site. The patient was now returned to the neutral position on the OR table. Just prior to this we were able to look up into the right upper quadrant. Changing over to the spy mode with the camera we could see that there was demonstration of the initial green in the liver itself. None was seen in the extraperitoneal fluid or any tissues around the common bile duct area. There was no evidence of any extravasation either. At this point attention was turned back towards our umbilical trocar site. This was now approximated using interrupted sutures placed using the Endo Close. These interrupted sutures last to gradually close the hole so we will could once again establish our pneumoperitoneum. At this point the eye was inspected to ensure adequate hemostasis. The irrigating fluid was aspirated from the peritoneal cavity. Either Kelvin-Ott drain was placed to suction. Most of the effluent was removed from the peritoneal cavity. At the end of the procedure the patient was then a stable condition when sent to the recovery room. Needle sponge instrument count were correct. One drain was placed. Complications: None Drain(s): RANDI drain Transferred to: Recovery Room Condition: Good
[2021-06-19] MEDS: HYDROMORPHONE HCL 1 MG/ML INJ ONE ×4 (17:55→19:05)
--- NOTE | 2021-06-19 18:08 | RAD REPORT ---
EXAM DESCRIPTION: RAD - Cholangiogram Oper-Xray Or - 06/19/2021 5:55 pm FINDINGS: There were 12 portable C-arm views submitted from fluoroscopic assisted intraoperative cho langiogram. Assessment is limited when only selected images are available. No suspicious or unexpecte d findings noted. Fluoro time was 0.5 minutes. Cumulative dose was 28.1 mGy.
[2021-06-20] MEDS: METRONIDAZOLE 500mg IVPB 500 MG/100 ML BAG IV SCH ×3 (01:15→16:43)
[2021-06-20] MEDS: MORPHINE 4 MG/ML SYR IV PRN ×2 (05:39→23:53)
[2021-06-20] MEDS ORDERED: ASPIRIN 81 MG CHEWABLE TABLET PO ONE (05:42)
[2021-06-20 06:30] LABS: Hematocrit 34.8 % (39.6-49.0); Lymphocytes % 6.5 % (15.3-44.8); RBC Red Blood Cell Count 4.17 M/uL (4.33-5.43)
[2021-06-20 06:49] LABS: Albumin 2.8 g/dL (3.4-5.0); Bilirubin Total 0.4 mg/dL (0.2-1.0); Potassium 3.9 mmol/L (3.5-5.1); Protein, Total 7.5 g/dL (6.4-8.2); Troponin High Sensitivity 6.5 pg/mL (<58.9)
[2021-06-20 07:41] LABS: Platelet Estimate INCR
[2021-06-20 07:42] LABS: Blood Morphology Comment NOT SEEN (NOT SEEN)
[2021-06-20] MEDS: D5 0.45 NS 1,000 ML IV SCH ×2 (08:08→16:43)
[2021-06-20] MEDS: CIPROFLOXACIN 400mg IV 400 MG/200 ML BAG IV SCH ×2 (08:08→20:41)
[2021-06-20] MEDS: HYDROCODONE/APAP 7.5/325 MG TAB PO PRN ×3 (08:12→18:10)
--- NOTE | 2021-06-20 14:00 | P.PN ---
Date of Service: 06/20/21 S: Patient states he feels better today. Admits he may have had at pain for about the last for 5 years and has suddenly gotten worse just the day before his presentation. O: Vital signs are stable, minimal after RANDI drain. Still slow to ambulate A: Continues to improve Anticipate discharge in a.m. :
--- NOTE | 2021-06-20 15:05 | P.CNS ---
Date of Consult: 06/20/21 Reason for Consult: Chest pain Requesting Physician: Checo Byrne Chief Complaint: Chest pain History of Present Illness: 58-year-old gentleman with no known past medical history, here for abdominal pain status post lap cholecystectomy was complaining of chest pain and abdominal pain earlier this morning. Lap cholecystectomy performed yesterday and patient was tolerating diet. He was complaining of uncontrolled pain last night. Hospitalist service consulted for chest pain rule out. Patient at the time of examination was denying any chest pain. He was complaining of abdominal pain especially at the incision sites. Allergies No Known Allergies Allergy (Verified 07/11/16 19:48) Home Medications: NK [No Home Meds] 07/11/16 - Past Medical/Surgical History Diabetic: No -: Gall stones -: Lap cholecystectomy - Social History Smoking Status: Never smoker Alcohol use: No CD- Drugs: No Caffeine use: No Review of Systems Other: Patient denies any shortness of breath or palpitation. He denies any cough. Except as documented, all other systems reviewed and negative. Physical Examination Temp Pulse Resp BP Pulse Ox 97.8 F 87 20 120/68 93 06/20/21 12:00 06/20/21 12:00 06/20/21 14:03 06/20/21 12:00 06/20/21 14:03 General: Alert, In no apparent distress, Oriented x3 HEENT: Normocephalic, Mucous membr. moist/pink, Sclerae nonicteric Neck: Supple, JVD not distended Respiratory: Clear to auscultation bilaterally, Normal air movement Cardiovascular: No edema, Regular rate/rhythm, Normal S1 S2 Gastrointestinal: Normal bowel sounds, Soft and benign, Non-distended, Other (RANDI drain in place) Musculoskeletal: No swelling, No tenderness Integumentary: No rashes, No erythema, No cyanosis Neurological: Normal speech, Normal strength at 5/5 x4 extr, Cranial nerves 3-12 intact Lymphatics: No axilla or inguinal lymphadenopathy - Problems (1) Status post laparoscopic cholecystectomy Current Visit: Yes Status: Acute (2) Chest pain Current Visit: Yes Status: Acute (3) Leukocytosis Current Visit: Yes Status: Acute Conclusions/Impression: Troponin trended negative. EKG shows sinus rhythm, no ischemic changes. No ACS. Patient with low risk factors. No further cardiology evaluation at this time. Pain management per primary-General surgery. Leukocytosis likely related to stress from surgery. Patient is currently on antibiotics-Flagyl and ciprofloxacin. Continue to monitor CBC to follow leukocytosis.
[2021-06-21] MEDS: METRONIDAZOLE 500mg IVPB 500 MG/100 ML BAG IV SCH ×3 (01:45→17:33)
[2021-06-21 04:25] LABS: Absolute Lymphocytes (CBC) 1.3 K/uL (0.7-4.9); Hematocrit 37.7 % (39.6-49.0); Lymphocytes % 10.2 % (15.3-44.8); MPV 7.1 fL (7.6-11.3); RBC Red Blood Cell Count 4.47 M/uL (4.33-5.43)
[2021-06-21] MEDS: HYDROCODONE/APAP 7.5/325 MG TAB PO PRN (04:38)
[2021-06-21 04:43] LABS: Potassium 4.1 mmol/L (3.5-5.1)
[2021-06-21] MEDS: D5 0.45 NS 1,000 ML IV SCH ×3 (06:28→15:00)
[2021-06-21] MEDS: CIPROFLOXACIN 400mg IV 400 MG/200 ML BAG IV SCH (10:25)
[2021-06-21 11:33] VITALS: O2SAT 96
--- NOTE | 2021-06-21 14:13 | P.PN ---
Subjective Date of Service: 06/21/21 Chief Complaint: Chest pain Patient has no new complaint today. No chest pain. States his abdominal pain is overall better experiencing some intermittent pain here and there. He is eating well. Physical Examination - Vital Signs Temperature: 97 F Blood Pressure: 151/76 Pulse: 52 Respirations: 18 Pulse Ox (%): 97 - Physical Exam General: Alert, In no apparent distress, Oriented x3 HEENT: Mucous membr. moist/pink Neck: JVD not distended Respiratory: Normal air movement Cardiovascular: No edema Gastrointestinal: Non-distended Musculoskeletal: No swelling Integumentary: No rashes Assessment And Plan - Current Problems (Diagnosis) (1) Status post laparoscopic cholecystectomy Current Visit: Yes Status: Acute (2) Chest pain Current Visit: Yes Status: Acute (3) Leukocytosis Current Visit: Yes Status: Acute - Plan No chest pain. Blood pressure is elevated today. Patient is on antibiotics. Elevated blood pressure probably as a response to pain and stress. Clinically stable. ACS ruled out. Patient with low CAD risk factors. Pain management per general surgery-Dr. Byrne
[2021-06-21] MEDS: MORPHINE 4 MG/ML SYR IV PRN (15:59)
[2021-06-21 17:31] VITALS: BP 132/90; TEMP 97.6
== END 2021-06-21 19:05 | disposition home or self-care (01) | DRG 419 ==
LOC: ER 19:18 → ERHOLD 22:45 → 2ND 06-19 00:49 → OBSVTOIN 06-19 19:36
PROVIDERS: ADMIT Surgery; ATTEND Surgery
PROC: BF00YZZ Plain Radiography of Bile Ducts using Other Contrast (ICD-10-PCS; 2021-06-19)
PROC: 0FT44ZZ Resection of Gallbladder, Percutaneous Endoscopic Approach (ICD-10-PCS; principal; 2021-06-19 12:30)
DX: K80.12 Calculus of gallbladder with acute and chronic cholecystitis without obstruction (principal); R07.9 Chest pain, unspecified; Z20.822 Contact with and (suspected) exposure to COVID-19
CPT/HCPCS: 0240U; 36415; 74177; 74300; 76705; 80048; 80053; 80076; 83690; 84484; 85025; 88304; 93005; 94010; 96361; 96374; 96375; 99285; J0330; J0744; J1100; J1170; J2250; J2405; J2704; J2710; J3010; J7030; J7120; J7799; Q9967